=== PATIENT | female | born 1980 | race Hispanic/Latino ===

== ENCOUNTER 2020-12-23 19:12 | Emergency (ER) | payer SELFPAY ==
[2020-12-23] MEDS ORDERED: methylPREDNISolone Acetate 40 mg/ml Vial ONE (20:00)
[2020-12-24 17:00] LABS: SARS-CoV-2 PCR by NAA Not Detected (NotDetected)
== END 2020-12-23 20:30 | disposition home or self-care (01) ==
LOC: NAV ERS 19:12
DX: J02.9 Acute pharyngitis, unspecified (principal); Z20.822 Contact with and (suspected) exposure to COVID-19
CPT/HCPCS: 87081; 87430; 96372; 99284; J2920; U0003; U0005